=== PATIENT | female | born 1960 | race Caucasian/White ===

== ENCOUNTER → 2020-07-20 | Outpatient (CLI) | payer MEDICARE ==
[~2020-07-20] MED LIST: BENADRYL ALLERG25 MG PO; IBU800 MG PO
== END ==
LOC: US 08:15
DX: R10.11 Right upper quadrant pain (principal); R93.421 Abnormal radiologic findings on diagnostic imaging of right kidney
CPT/HCPCS: 76705

== ENCOUNTER 2020-09-01 10:18 | Emergency (ER) | payer MEDICARE, OTHER ==
[2020-09-01] MEDS ORDERED: BENADRYL ALLERG25 MG PO (12:46)
[2020-09-01] MEDS ORDERED: IBU800 MG PO (12:46)
== END 2020-09-01 13:08 | disposition home or self-care (01) ==
LOC: ER1 10:18
DX: L30.9 Dermatitis, unspecified (principal); L50.9 Urticaria, unspecified
CPT/HCPCS: 99282